=== PATIENT | male | born 1970 | race Caucasian/White ===

== ENCOUNTER 2016-07-17 13:25 | Emergency (ER) | payer BC ==
[2016-07-17] MEDS ORDERED: Sodium Chloride 0.9% 2.5 ML Syringe FLUSH PRN (13:39)
[2016-07-17] MEDS ORDERED: Sodium Chloride 0.9% 10 ML Syringe FLUSH PRN (13:39)
--- NOTE | 2016-07-17 13:43 | EDM.PDOC ---
ED HISTORY OF PRESENT ILLNESS - General Chief Complaint: Cardiovascular Problem Stated Complaint: CHEST PAIN Time Seen by Provider: 07/17/16 13:30 - History of Present Illness INITIAL COMMENTS - FREE TEXT/NARRATIVE: HISTORY AND PHYSICAL: History of present illness: The patient is a 45-year-old male with a history of hypertension hypercholesterolemia who had angioplasty and stent stents done on May 29 of this year at [facility] with Dr. Kathleen and presents with complaints of feeling irregular heartbeat that started at 3 AM this morning. The patient stated a normal day yesterday with no systemic complaints of cough fever chills chest pain shortness of breath abdominal pain vomiting or diarrhea and has been eating and drinking normally. He states compliance with his medications including Plavix. He states he had an angioplasty and 2 stents placed on May 29 of this year after being transferred from the ER. He saw Dr. Kathleen approximately 2 weeks ago in the office and he was cleared to not come back for the next 6 months. There were no medication changes on that visit. The patient states that at 3 AM this morning he started feeling irregular heart beats and that they have been constantly occurring since that time until the present. He went to cardiac rehabilitation this morning and states that the nurse saw one irregular beat while he was there. He says he came into the ER because they have been happening at shorter intervals and occurring more frequently. He denies any chest pain or shortness of breath with this no nausea vomiting and no abdominal pain. The patient states he has a history of heavy caffeine use but has cut back to only one Monster drink a day Upon repeated questioning with the patient he says he asked we does not feel any discomfort with these irregular beats but because they're happening more frequently he is feeling somewhat anxious about them. Review of systems: As per history of present illness and below otherwise all systems reviewed and negative. Past medical history: As per history of present illness and as reviewed below otherwise noncontributory. Surgical history: As per history of present illness and as reviewed below otherwise noncontributory. Social history: No reported history of drug or alcohol abuse. Family history: As per history of present illness and as reviewed below otherwise noncontributory. Physical exam: General: Well-developed well-nourished male who is nontoxic and still mildly overweight who is in no distress. On the monitor I personally was able to witness to random PVCs. HEENT: Atraumatic, normocephalic, pupils reactive, negative for conjunctival pallor or scleral icterus, mucous membranes moist, throat clear, neck supple, nontender, trachea midline. Lungs: Clear to auscultation, breath sounds equal bilaterally, chest nontender. Heart: S1S2, regular, negative for clicks, rubs, or JVD. Abdomen: Soft, nondistended, nontender. Negative for masses or hepatosplenomegaly. Negative for costovertebral tenderness. Pelvis: Stable nontender. Genitourinary: Deferred. Rectal: Deferred. Extremities: Atraumatic, negative for cords or calf pain. Neurovascular unremarkable. No pedal edema Neuro: Awake, alert, oriented. Cranial nerves II through XII unremarkable. Cerebellum unremarkable. Motor and sensory unremarkable throughout. Exam nonfocal. Diagnostics: EKG chest x-ray CBC CMP INR troponin Therapeutics: IV O2 monitor 1435: While patient was here in the ER he did have an occasional PVC and has had heart rates in the [place] 90s with good blood pressures. I discussed the case with Dr. Kathleen, his fluorescent solution mixer at [facility] in [place], and he would like to do a 24-hour Holter monitor which will help arrange to be done. He also recommended that we increase his Toprol XL to 50 mg twice a day. I discussed this plan with the patient and at bedside and they are comfortable with this. I recommended that he return to the ER if anything changes Impression: Irregular heartbeats with history of recent angioplasty and stents stable Definitive disposition and diagnosis as appropriate pending reevaluation and review of above. - Related Data Allergies/ADRs: Allergies Allergy/AdvReac Type Severity Reaction Status Date / Time No Known Allergies Allergy Verified 07/17/16 13:30 Home Meds: Home Meds Clopidogrel [Plavix] 75 mg PO BEDTIME 05/28/16 [History] Isosorbide Dinitrate 30 mg PO BID 05/28/16 [History] Metoprolol Succinate [Toprol XL 50mg] 50 mg PO DAILY 05/28/16 [History] atorvaSTATin [Lipitor] 20 mg PO ONETIME 05/28/16 [History] Cyclobenzaprine [Flexeril] 1 tab PO ASDIRECTED PRN 07/17/16 [History] Nitroglycerin [Nitrostat] 1 tab SL ASDIRECTED 07/17/16 [History] Tapentadol HCl [Nucynta] 2 tab PO QID 07/17/16 [History] Varenicline Tartrate [Chantix] 1 tab PO BID 07/17/16 [History] Zolpidem [Ambien] 1 tab PO BEDTIME 07/17/16 [History] Past Medical History - Past Health History Medical/Surgical History: Denies Medical/Surgical History HEENT History: Reports: None Cardiovascular History: Reports: CAD Other Cardiovascular History: Heart attack last month; no stents Respiratory History: Reports: None Musculoskeletal History: Reports: Other (see below) Other Musculoskeletal History: Back injury Psychiatric History: Reports: None - Infectious Disease History Infectious Disease History: Reports: Chicken pox - Past Surgical History HEENT Surgical History: Reports: None Cardiovascular Surgical History: Reports: Coronary artery stent, Percutaneous transluminal angioplasty GI Surgical History: Reports: Appendectomy, Hernia, abdominal Musculoskeletal Surgical History: Reports: None Social & Family History - Family History Family Medical History: Noncontributory Cardiac: Reports: Hypertension, Other (see below) Other Cardiac Family History: father have cardiac problem Endocrine/Metabolic: Reports: Diabetes, type II - Tobacco Use Smoking Status *Q: Current Every Day Smoker Years of Tobacco use: 20 Packs/Tins Daily: 1 Second Hand Smoke Exposure: Yes - Caffeine Use Caffeine Use: Reports: Soda Caffeine Use Comment: 3cups/day - Recreational Drug Use Recreational Drug Use: No ED ROS GENERAL - Review of Systems Review Of Systems: ROS reveals no pertinent complaints other than HPI. ED EXAM, GENERAL - Physical Exam Exam: See Below (See dictation) Course - Vital Signs Last Recorded V/S: Last Vital Signs Temp 36.1 C 07/17/16 13:30 Pulse 90 07/17/16 13:30 Resp 20 07/17/16 13:30 BP 134/82 07/17/16 13:30 Pulse Ox 96 07/17/16 13:39 - Orders/Labs/Meds Orders: Active Orders 24 hr Category Date Time Status Cardiac Monitoring [RC] . DIRECTED Care 07/17/16 13:39 Active EKG Documentation Completion [RC] STAT Care 07/17/16 13:39 Active Oxygen Therapy, ED [RC] ASDIRECTED Care 07/17/16 13:39 Active Pulse Oximetry [RC] ASDIRECTED Care 07/17/16 13:39 Active Sodium Chloride 0.9% [Saline Flush] Med 07/17/16 13:39 Active 10 ml FLUSH ASDIRECTED PRN Sodium Chloride 0.9% [Saline Flush] Med 07/17/16 13:39 Active 2.5 ml FLUSH ASDIRECTED PRN Saline Lock Insert [OM.PC] Stat Oth 07/17/16 13:39 Ordered Medication Orders Sodium Chloride (Saline Flush) 10 ml FLUSH ASDIRECTED PRN PRN Reason: Keep Vein Open Sodium Chloride (Saline Flush) 2.5 ml FLUSH ASDIRECTED PRN PRN Reason: Keep Vein Open Labs: Laboratory Tests 07/17/16 07/17/16 07/17/16 Range/Units 13:30 13:30 13:30 WBC 9.48 (4.0-11.0) K/uL RBC 4.69 (4.50-5.90) M/uL Hgb 14.4 (13.0-17.0) g/dL Hct 43.1 (38.0-50.0) % MCV 91.9 (80.0-98.0) fL MCH 30.7 (27.0-32.0) pg MCHC 33.4 (31.0-37.0) g/dL RDW Std Deviation 43.4 (28.0-62.0) fl RDW Coeff of Anita 13 (11.0-15.0) % Plt Count 260 (150-400) K/uL MPV 9.60 (7.40-12.00) fL Neut % (Auto) 61.7 (48.0-80.0) % Lymph % (Auto) 27.5 (16.0-40.0) % [place] % (Auto) 8.2 (0.0-15.0) % Eos % (Auto) 2.1 (0.0-7.0) % Baso % (Auto) 0.5 (0.0-1.5) % Neut # 5.8 H (1.4-5.7) K/uL Lymph # 2.6 H (0.6-2.4) K/uL [place] # 0.8 (0.0-0.8) K/uL Eos # 0.2 (0.0-0.7) K/uL Baso # 0.1 (0.0-0.1) K/uL Nucleated RBC % 0.0 /100WBC Nucleated RBCs # 0 K/uL INR 0.98 (0.86-1.11) Sodium 137 (136-146) mmol/L Potassium 3.9 (3.5-5.1) mmol/L Chloride 102 (98-110) mmol/L Carbon Dioxide 25 (21-31) mmol/L BUN 9 (6.0-23.0) mg/dL Creatinine 1.1 (0.6-1.5) mg/dL Est Cr Clr Drug Dosing 95.04 mL/min Estimated GFR (MDRD) > 60.0 ml/min Glucose 126 H (60-110) mg/dL Calcium 9.9 (8.8-10.8) mg/dL Magnesium (1.5-2.3) mEq/L Total Bilirubin 0.3 (0.1-1.5) mg/dL AST 22 (5-40) IU/L ALT 35 (8-54) IU/L Alkaline Phosphatase 75 (40-150) Troponin I (0.0-0.29) NG/ML Total Protein 8.2 H (6.0-8.0) g/dL Albumin 4.6 (3.5-5.0) g/dL Globulin 3.6 H (2.0-3.5) g/dL Albumin/Globulin Ratio 1.3 (1.3-2.8) 07/17/16 07/17/16 Range/Units 13:30 13:30 WBC (4.0-11.0) K/uL RBC (4.50-5.90) M/uL Hgb (13.0-17.0) g/dL Hct (38.0-50.0) % MCV (80.0-98.0) fL MCH (27.0-32.0) pg MCHC (31.0-37.0) g/dL RDW Std Deviation (28.0-62.0) fl RDW Coeff of Anita (11.0-15.0) % Plt Count (150-400) K/uL MPV (7.40-12.00) fL Neut % (Auto) (48.0-80.0) % Lymph % (Auto) (16.0-40.0) % [place] % (Auto) (0.0-15.0) % Eos % (Auto) (0.0-7.0) % Baso % (Auto) (0.0-1.5) % Neut # (1.4-5.7) K/uL Lymph # (0.6-2.4) K/uL [place] # (0.0-0.8) K/uL Eos # (0.0-0.7) K/uL Baso # (0.0-0.1) K/uL Nucleated RBC % /100WBC Nucleated RBCs # K/uL INR (0.86-1.11) Sodium (136-146) mmol/L Potassium (3.5-5.1) mmol/L Chloride (98-110) mmol/L Carbon Dioxide (21-31) mmol/L BUN (6.0-23.0) mg/dL Creatinine (0.6-1.5) mg/dL Est Cr Clr Drug Dosing mL/min Estimated GFR (MDRD) ml/min Glucose (60-110) mg/dL Calcium (8.8-10.8) mg/dL Magnesium 1.8 (1.5-2.3) mEq/L Total Bilirubin (0.1-1.5) mg/dL AST (5-40) IU/L ALT (8-54) IU/L Alkaline Phosphatase (40-150) Troponin I < 0.10 (0.0-0.29) NG/ML Total Protein (6.0-8.0) g/dL Albumin (3.5-5.0) g/dL Globulin (2.0-3.5) g/dL Albumin/Globulin Ratio (1.3-2.8) Meds: Medications Generic Name Dose Route Start Last Admin Trade Name Freq PRN Reason Stop Dose Admin Sodium Chloride 10 ml 07/17/16 13:39 Saline Flush FLUSH ASDIRECTED PRN Keep Vein Open Sodium Chloride 2.5 ml 07/17/16 13:39 Saline Flush FLUSH ASDIRECTED PRN Keep Vein Open Departure - Departure Time of Disposition: 14:42 Disposition: Home, Self-Care 01 Condition: good Clinical Impression: Irregular heart beats Forms: ED Department Discharge Additional Instructions: The following information is given to patients seen in the emergency department who are being discharged to home. This information is to outline your options for follow-up care. We provide all patients seen in our emergency department with a follow-up referral. The need for follow-up, as well as the timing and circumstances, are variable depending upon the specifics of your emergency department visit. If you don't have a primary care physician on staff, we will provide you with a referral. We always advise you to contact your personal physician following an emergency department visit to inform them of the circumstance of the visit and for follow-up with them and/or the need for any referrals to a consulting specialist. The emergency department will also refer you to a specialist when appropriate. This referral assures that you have the opportunity for followup care with a specialist. All of these measure are taken in an effort to provide you with optimal care, which includes your followup. Under all circumstances we always encourage you to contact your private physician who remains a resource for coordinating your care. When calling for followup care, please make the office aware that this follow-up is from your recent emergency room visit. If for any reason you are refused follow-up, please contact the [facility] emergency department at and ask to speak to the emergency department charge nurse. [facility]- [place] [address] Please go and have your Holter monitor done as directed by my nurses. Please call and schedule followup with Dr. Kathleen at [facility] in [place] and also with primary care here locally. Return to ER as needed and as discussed. Increase your Toprol XL, metoprolol, from 50 mg once a day 50 mg twice a day. - My Orders Last 24 Hours: My Active Orders 07/17/16 13:39 Cardiac Monitoring [RC] . DIRECTED EKG Documentation Completion [RC] STAT Oxygen Therapy, ED [RC] ASDIRECTED Pulse Oximetry [RC] ASDIRECTED Sodium Chloride 0.9% [Saline Flush] 10 ml FLUSH ASDIRECTED PRN Sodium Chloride 0.9% [Saline Flush] 2.5 ml FLUSH ASDIRECTED PRN Saline Lock Insert [OM.PC] Stat - Assessment/Plan Last 24 Hours: My Active Orders 07/17/16 13:39 Cardiac Monitoring [RC] . DIRECTED EKG Documentation Completion [RC] STAT Oxygen Therapy, ED [RC] ASDIRECTED Pulse Oximetry [RC] ASDIRECTED Sodium Chloride 0.9% [Saline Flush] 10 ml FLUSH ASDIRECTED PRN Sodium Chloride 0.9% [Saline Flush] 2.5 ml FLUSH ASDIRECTED PRN Saline Lock Insert [OM.PC] Stat
[2016-07-17 14:03] LABS: CHLORIDE,CL 102 mmol/L (98-110); SODIUM,NA 137 mmol/L (136-146)
--- NOTE | 2016-07-17 14:14 | CR ---
EXAMINATION: Portable chest radiograph. HISTORY: Shortness of breath. FINDINGS: The trachea is midline. The cardiomediastinal silhouette is within normal limits. No pulmonary infil trates, effusions or pneumothorax. Osseous structures appear unremarkable. IMPRESSION: No acute cardiopulmonary process.
[2016-07-17 15:11] VITALS: BP 130/83
== END 2016-07-17 15:00 | disposition home or self-care (01) ==
LOC: MW.ED 13:25
DX: I49.9 Cardiac arrhythmia, unspecified (principal); I25.10 Atherosclerotic heart disease of native coronary artery without angina pectoris; E11.9 Type 2 diabetes mellitus without complications; F17.210 Nicotine dependence, cigarettes, uncomplicated; Z90.49 Acquired absence of other specified parts of digestive tract; Z79.899 Other long term (current) drug therapy; Z95.5 Presence of coronary angioplasty implant and graft
CPT/HCPCS: 71010; 71010-26; 80053; 83735; 84484; 85025; 85610; 99284; 99285-25

== ENCOUNTER → 2016-07-19 | Outpatient (CLI) | payer BC | LOC: MW.RT 10:23 | PROVIDERS: ATTEND Emergency Medicine | DX: I49.3 Ventricular premature depolarization (principal) | CPT/HCPCS: 93225 ==

== ENCOUNTER 2016-10-07 23:35 | Observation (INO) | payer BC ==
[2016-10-07] MEDS ORDERED: Nitroglycerin 2% Oint 1 GM UD Packet TOP ONE (23:51)
[2016-10-07] MEDS ORDERED: Acetaminophen/HYDROcodone 325-5 MG Tab PO ONE (23:51)
[2016-10-07] MEDS ORDERED: Aspirin 81 MG Tab.Chew PO ONE (23:57)
[2016-10-08 00:34] LABS: CHLORIDE,CL 104 mmol/L (98-110); SODIUM,NA 140 mmol/L (136-146)
--- NOTE | 2016-10-08 00:44 | EDM.PDOC ---
ED HPI GENERAL MEDICAL PROBLEM - General Chief Complaint: Chest Pain Stated Complaint: CHEST PAIN Time Seen by Provider: 10/07/16 23:36 Source of Information: Reports: Patient History Limitations: Reports: No Limitations - History of Present Illness INITIAL COMMENTS - FREE TEXT/NARRATIVE: HISTORY AND PHYSICAL: History of present illness: [45-year-old male history of prior IN with multiple stents placed now presents emergent [place] complaining of chest pain similar to his previous cardiac pain. Patient had onset of chest pain tonight pressure type no radiation mild shortness of air no pleuritic pain no productive cough or fever. Pain is not worse with movement. He did take 3 nitroglycerin at home with some relief. She did not take aspirin today. He is on Plavix with which he is compliant] Review of systems: As per history of present illness and below otherwise all systems reviewed and negative. Past medical history: As per history of present illness and as reviewed below otherwise noncontributory. Surgical history: As per history of present illness and as reviewed below otherwise noncontributory. Social history: No reported history of drug or alcohol abuse. Family history: As per history of present illness and as reviewed below otherwise noncontributory. Physical exam: HEENT: Atraumatic, normocephalic, pupils reactive, negative for conjunctival pallor or scleral icterus, mucous membranes moist, throat clear, neck supple, nontender, trachea midline. Lungs: Clear to auscultation, breath sounds equal bilaterally, chest nontender. Heart: S1S2, regular, negative for clicks, rubs, or JVD. Abdomen: Soft, nondistended, nontender. Negative for masses or hepatosplenomegaly. Negative for costovertebral tenderness. Pelvis: Stable nontender. Genitourinary: Deferred. Rectal: Deferred. Extremities: Atraumatic, negative for cords or calf pain. Neurovascular unremarkable. Neuro: Awake, alert, oriented. Cranial nerves grossly unremarkable. Cerebellum unremarkable. Motor and sensory unremarkable throughout. Exam nonfocal. Diagnostics: [EKG normal sinus rhythm at 80 normal axis no STEMI Chest x-ray ordered Megaly chronic changes no acute disease no change prior study] Therapeutics: [Aspirin Nitropaste given] Impression: [] Plan: [Signs and symptoms consistent with chest pain a possible cardiac etiology in a patient with a known coronary artery disease history. EKG and chest x-ray unremarkable. CT of the chest pending to rule out less likely possibility of aortic involvement. Aspirin Nitropaste given. Labs pending including troponin. We will do observation telemetry admission and discussed with Dr. Mohinder Walsh hospitalist general production worker.] Definitive disposition and diagnosis as appropriate pending reevaluation and review of above. Anterior Chest Pain Score (Numeric/FACES): 7 - Related Data Allergies Allergy/AdvReac Type Severity Reaction Status Date / Time No Known Allergies Allergy Verified 10/07/16 23:39 Home Meds: Home Meds Clopidogrel [Plavix] 75 mg PO BEDTIME 05/28/16 [History] Isosorbide Dinitrate 30 mg PO BID 05/28/16 [History] Metoprolol Succinate [Toprol XL 50mg] 50 mg PO BID 05/28/16 [History] atorvaSTATin [Lipitor] 20 mg PO ONETIME 05/28/16 [History] Cyclobenzaprine [Flexeril] 1 tab PO ASDIRECTED PRN 07/17/16 [History] Nitroglycerin [Nitrostat] 1 tab SL ASDIRECTED 07/17/16 [History] Tapentadol HCl [Nucynta] 1 tab PO TID 07/17/16 [History] Aspirin 81 mg PO BRK 10/07/16 [History] Past Medical History - Past Health History Medical/Surgical History: Denies Medical/Surgical History HEENT History: Reports: None Cardiovascular History: Reports: IN, Stents Other Cardiovascular History: Heart attack last month; no stents Respiratory History: Reports: None Gastrointestinal History: Reports: None Genitourinary History: Reports: None Musculoskeletal History: Reports: None Other Musculoskeletal History: Back injury Neurological History: Reports: None Psychiatric History: Reports: None Endocrine/Metabolic History: Reports: None Hematologic History: Reports: None Immunologic History: Reports: None Oncologic (Cancer) History: Reports: None Dermatologic History: Reports: None - Infectious Disease History Infectious Disease History: Reports: None - Past Surgical History Head Surgeries/Procedures: Reports: None HEENT Surgical History: Reports: None Cardiovascular Surgical History: Reports: Coronary Artery Stent, Percutaneous Transluminal Angioplasty GI Surgical History: Reports: Appendectomy, Hernia, Abdominal Male Surgical History: Reports: None Neurological Surgical History: Reports: None Musculoskeletal Surgical History: Reports: None Social & Family History - Family History Family Medical History: Noncontributory Cardiac: Reports: Hypertension, Other (See Below) Other Cardiac Family History: father have cardiac problem Endocrine/Metabolic: Reports: Diabetes, type II - Tobacco Use Smoking Status *Q: Current Every Day Smoker Years of Tobacco use: 1 Packs/Tins Daily: 20 Second Hand Smoke Exposure: Yes - Caffeine Use Caffeine Use: Reports: Energy Drinks Caffeine Use Comment: 1 monster everyday - Recreational Drug Use Recreational Drug Use: No ED ROS GENERAL - Review of Systems Review Of Systems: See Below (History of present illness) ED EXAM, GENERAL - Physical Exam Exam: See Below (History of present illness) Course - Vital Signs Last Recorded V/S: Last Vital Signs Temp 35.6 C 10/07/16 23:40 Pulse 81 10/08/16 01:48 Resp 18 10/08/16 01:48 BP 112/71 10/08/16 01:48 Pulse Ox 95 10/08/16 01:48 - Orders/Labs/Meds Orders: Active Orders 24 hr Category Date Time Status Admission Status [Patient Status] [ADT] Stat ADT 10/08/16 02:18 Active EKG 12 Lead [EKG Documentation Completion] [RC] STAT Care 10/07/16 23:50 Active Ang Abdomen [CT] Stat Exams 10/08/16 Taken CTA Chest W WO Contrast [Ang Chest] [CT] Stat Exams 10/08/16 00:16 Taken Chest 1V Frontal [CR] Stat Exams 10/07/16 23:51 Taken Labs: Laboratory Tests 10/07/16 10/07/16 10/07/16 Range/Units 23:43 23:43 23:43 WBC 13.99 H (4.0-11.0) K/uL RBC 4.78 (4.50-5.90) M/uL Hgb 15.2 (13.0-17.0) g/dL Hct 43.7 (38.0-50.0) % MCV 91.4 (80.0-98.0) fL MCH 31.8 (27.0-32.0) pg MCHC 34.8 (31.0-37.0) g/dL RDW Std Deviation 42.8 (28.0-62.0) fl RDW Coeff of Anita 13 (11.0-15.0) % Plt Count 250 (150-400) K/uL MPV 9.90 (7.40-12.00) fL Neut % (Auto) 65.1 (48.0-80.0) % Lymph % (Auto) 24.2 (16.0-40.0) % [place] % (Auto) 8.6 (0.0-15.0) % Eos % (Auto) 1.7 (0.0-7.0) % Baso % (Auto) 0.4 (0.0-1.5) % Neut # (Auto) 9.1 H (1.4-5.7) K/uL Lymph # (Auto) 3.4 H (0.6-2.4) K/uL [place] # (Auto) 1.2 H (0.0-0.8) K/uL Eos # (Auto) 0.2 (0.0-0.7) K/uL Baso # (Auto) 0.1 (0.0-0.1) K/uL Nucleated RBC % 0.0 /100WBC Nucleated RBCs # 0 K/uL Sodium 140 (136-146) mmol/L Potassium 3.8 (3.5-5.1) mmol/L Chloride 104 (98-110) mmol/L Carbon Dioxide 26 (21-31) mmol/L BUN 12 (6.0-23.0) mg/dL Creatinine 1.2 (0.6-1.5) mg/dL Est Cr Clr Drug Dosing 87.12 mL/min Estimated GFR (MDRD) > 60.0 ml/min Glucose 96 (60-110) mg/dL Calcium 9.4 (8.8-10.8) mg/dL Total Bilirubin 0.4 (0.1-1.5) mg/dL AST 27 (5-40) IU/L ALT 37 (8-54) IU/L Alkaline Phosphatase 84 (40-150) CK-MB (CK-2) 1.0 (0-6.6) ng/ml Troponin I < 0.10 (0.0-0.29) NG/ML Total Protein 7.8 (6.0-8.0) g/dL Albumin 4.7 (3.5-5.0) g/dL Globulin 3.1 (2.0-3.5) g/dL Albumin/Globulin Ratio 1.5 (1.3-2.8) Meds: Medications Discontinued Medications Generic Name Dose Route Start Last Admin Trade Name Harini PRN Reason Stop Dose Admin Hydrocodone Bitart/Acetaminophen 1 tab 10/07/16 23:51 10/08/16 00:05 [place] 325-5 Mg PO 10/07/16 23:52 1 tab ONETIME ONE Administration Aspirin 324 mg 10/07/16 23:57 10/08/16 00:04 Aspirin PO 10/07/16 23:58 324 mg ONETIME ONE Administration Iopamidol 100 ml 10/08/16 01:17 10/08/16 01:18 Isovue Multipack-370 (76%) IVPUSH 10/08/16 01:18 100 ml ONETIME STA Administration Nitroglycerin 1 gm 10/07/16 23:51 10/08/16 00:05 Nitro-Bid 2% TOP 10/07/16 23:52 1 gm ONETIME ONE Administration Departure - Departure Time of Disposition: 00:44 Disposition: Refer to Observation Condition: good Clinical Impression: Chest pain - Discharge Information Referrals: Beto Gr MD [Primary Care Provider] - Forms: ED Department Discharge - My Orders Last 24 Hours: My Active Orders 10/07/16 23:50 EKG 12 Lead [EKG Documentation Completion] [RC] STAT 10/07/16 23:51 Chest 1V Frontal [CR] Stat 10/08/16 Ang Abdomen [CT] Stat 10/08/16 00:16 CTA Chest W WO Contrast [Ang Chest] [CT] Stat 10/08/16 02:18 Admission Status [Patient Status] [ADT] Stat - Assessment/Plan Last 24 Hours: My Active Orders 10/07/16 23:50 EKG 12 Lead [EKG Documentation Completion] [RC] STAT 10/07/16 23:51 Chest 1V Frontal [CR] Stat 10/08/16 Ang Abdomen [CT] Stat 10/08/16 00:16 CTA Chest W WO Contrast [Ang Chest] [CT] Stat 10/08/16 02:18 Admission Status [Patient Status] [ADT] Stat
[2016-10-08] MEDS ORDERED: Iopamidol 755 MG/ML 500 ML Multipack Bottle IVPUSH STA (01:17)
[2016-10-08] MEDS ORDERED: Morphine 2 MG/ML Syringe IVPUSH PRN (03:19)
[2016-10-08] MEDS ORDERED: Cyclobenzaprine 10 MG Tab PO PRN (03:37)
[2016-10-08] MEDS ORDERED: Nitroglycerin 0.4 MG Tab.SL SL SCH (03:45)
[2016-10-08] MEDS ORDERED: TAPENTADOL HCL PO SCH (06:00)
[2016-10-08] MEDS ORDERED: Acetaminophen 325 MG Tab PO PRN (08:09)
[2016-10-08 08:28] LABS: CHLORIDE,CL 105 mmol/L (98-110); SODIUM,NA 138 mmol/L (136-146)
[2016-10-08] MEDS ORDERED: Isosorbide Dinitrate 10 MG Tab PO SCH (09:00)
[2016-10-08] MEDS ORDERED: Isosorbide Dinitrate 10 MG Tab PO ONE (09:00)
[2016-10-08] MEDS ORDERED: Metoprolol Succinate 50 MG Tab.ER PO SCH (09:00)
[2016-10-08] MEDS ORDERED: TAPENTADOL 50 MG PO SCH (09:00)
[2016-10-08] MEDS ORDERED: Aspirin 81 MG Tab.Chew PO SCH (09:00)
--- NOTE | 2016-10-08 11:47 | PCM.HP ---
H&P History of Present Illness - History of Present Illness Initial Comments - Free Text/Narative: 45 yo male with pmh of CAD with IA and two stents placed five months ago. He has been compliant with his medications in has not had to use nitro for chest pain in the past three months. He presents to the ED with complaints of chest pain. He used nitro SL x3 at home with some releif. He was evaluated in the ED with EKG and cardiac enzymes not showing signs of ischemia. CTA of chest was normal. He denies any shortness of breath, diaphoresis or cough. Anterior Chest Pain Score (Numeric/FACES): 3 - Related Data Allergies/Adverse Reactions: Allergies Allergy/AdvReac Type Severity Reaction Status Date / Time No Known Allergies Allergy Verified 10/07/16 23:39 Home Medications: Home Meds Clopidogrel [Plavix] 75 mg PO BEDTIME 05/28/16 [History] Isosorbide Dinitrate 30 mg PO BID 05/28/16 [History] Metoprolol Succinate [Toprol XL 50mg] 50 mg PO BID 05/28/16 [History] atorvaSTATin [Lipitor] 20 mg PO BEDTIME 05/28/16 [History] Cyclobenzaprine [Flexeril] 1 tab PO QID PRN 07/17/16 [History] Nitroglycerin [Nitrostat] 1 tab SL ASDIRECTED 07/17/16 [History] Tapentadol HCl [Nucynta] 1 tab PO TID 07/17/16 [History] Aspirin 81 mg PO BRK 10/07/16 [History] Past Medical History - Past Health History Medical/Surgical History: Denies Medical/Surgical History HEENT History: Reports: None Cardiovascular History: Reports: IA, Stents Other Cardiovascular History: Heart attak last month; no stents Respiratory History: Reports: None Gastrointestinal History: Reports: None Genitourinary History: Reports: None Musculoskeletal History: Reports: None Other Musculoskeletal History: Back injury Neurological History: Reports: None Psychiatric History: Reports: None Endocrine/Metabolic History: Reports: None Hematologic History: Reports: None Immunologic History: Reports: None Oncologic (Cancer) History: Reports: None Dermatologic History: Reports: None - Infectious Disease History Infectious Disease History: Reports: None - Past Surgical History Head Surgeries/Procedures: Reports: None HEENT Surgical History: Reports: None Cardiovascular Surgical History: Reports: Coronary Artery Stent, Percutaneous Transluminal Angioplasty GI Surgical History: Reports: Appendectomy, Hernia, Abdominal Male Surgical History: Reports: None Neurological Surgical History: Reports: None Musculoskeletal Surgical History: Reports: None Social & Family History - Family History Family Medical History: Noncontributory Cardiac: Reports: Hypertension, Other (See Below) Other Cardiac Family History: father have cardiac problem Respiratory: Reports: None GI: Reports: None : Reports: None Musculoskeletal: Reports: None Neurological: Reports: None Psychiatric: Reports: None Endocrine/Metabolic: Reports: None, Diabetes, type II Hematologic: Reports: None Immunologic: Reports: None Dermatologic: Reports: None Oncologic: Reports: None - Tobacco Use Smoking Status *Q: Current Every Day Smoker Years of Tobacco use: 20 Packs/Tins Daily: 1 Used Tobacco, but Quit: No Month Tobacco Last Used: September Second Hand Smoke Exposure: Yes - Caffeine Use Caffeine Use: Reports: Coffee, Energy Drinks Caffeine Use Comment: 1 monster everyday - Alcohol Use Days Per Week of Alcohol Use: 1 Number of Drinks Per Day: 1 Total Drinks Per Week: 1 Date of Last Drink: 10/07/16 Time of Last Drink: 20:00 - Recreational Drug Use Recreational Drug Use: No H&P Review of Systems - Review of Systems: Review Of Systems: See Below General: Reports: No Symptoms HEENT: Reports: No Symptoms Pulmonary: Reports: No Symptoms Cardiovascular: Reports: No Symptoms Gastrointestinal: Reports: No Symptoms Genitourinary: Reports: No Symptoms Musculoskeletal: Reports: No Symptoms Skin: Reports: No Symptoms Psychiatric: Reports: No Symptoms Neurological: Reports: No Symptoms Hematologic/Lymphatic: Reports: No Symptoms Immunologic: Reports: No Symptoms Exam - Exam Exam: See Below - Vital Signs Vital Signs: Last Vital Signs Temp 36.1 C 10/08/16 08:00 Pulse 71 10/08/16 08:50 Resp 20 10/08/16 08:00 BP 130/69 10/08/16 08:50 Pulse Ox 92 L 10/08/16 08:00 Weight: 122.7 kg - Exam General: Alert, Oriented, 4 Neck: Supple, Trachea Midline. No: JVD Lungs: Clear to Auscultation, Normal Respiratory Effort Cardiovascular: Regular Rate, Regular Rhythm Abdomen: Normal Bowel Sounds, Soft Extremities: Normal Inspection Skin: Warm, Dry, Intact Neurological: No: Focal Deficit - Patient Data Lab Results last 24 hrs: Laboratory Results - last 24 hr 10/08/16 10/08/16 10/08/16 Range/Units 05:50 05:50 05:50 WBC 10.62 (4.0-11.0) K/uL RBC 4.35 L (4.50-5.90) M/uL Hgb 13.5 (13.0-17.0) g/dL Hct 39.9 (38.0-50.0) % MCV 91.7 (80.0-98.0) fL MCH 31.0 (27.0-32.0) pg MCHC 33.8 (31.0-37.0) g/dL RDW Std Deviation 43.0 (28.0-62.0) fl RDW Coeff of Anita 13 (11.0-15.0) % Plt Count 211 (150-400) K/uL MPV 10.20 (7.40-12.00) fL Neut % (Auto) 62.8 (48.0-80.0) % Lymph % (Auto) 26.9 (16.0-40.0) % [place] % (Auto) 7.6 (0.0-15.0) % Eos % (Auto) 2.4 (0.0-7.0) % Baso % (Auto) 0.3 (0.0-1.5) % Neut # (Auto) 6.7 H (1.4-5.7) K/uL Lymph # (Auto) 2.9 H (0.6-2.4) K/uL [place] # (Auto) 0.8 (0.0-0.8) K/uL Eos # (Auto) 0.3 (0.0-0.7) K/uL Baso # (Auto) 0.0 (0.0-0.1) K/uL Nucleated RBC % 0.0 /100WBC Nucleated RBCs # 0 K/uL Sodium 138 (136-146) mmol/L Potassium 4.1 (3.5-5.1) mmol/L Chloride 105 (98-110) mmol/L Carbon Dioxide 25 (21-31) mmol/L BUN 13 (6.0-23.0) mg/dL Creatinine 1.0 (0.6-1.5) mg/dL Est Cr Clr Drug Dosing 104.54 mL/min Estimated GFR (MDRD) > 60.0 ml/min Glucose 139 H (60-110) mg/dL Calcium 8.6 L (8.8-10.8) mg/dL Troponin I < 0.10 (0.0-0.29) NG/ML Result Diagrams: 10/08/16 05:50 10/08/16 05:50 *Q Meaningful Use (ADM) - VTE *Q VTE Criteria *Q: - Stroke *Q Stroke Criteria *Q: - AMI *Q AMI Criteria *Q: Problem List Initiated/Reviewed/Updated: Yes Orders Last 24hrs: Active Orders 24 hr Category Date Time Status Communication Order [RC] DAILY Care 10/08/16 03:37 Active Communication Order [RC] ROUTINE Care 10/08/16 08:09 Active Telemetry Monitoring [Cardiac Monitoring] [RC] . Care 10/08/16 02:25 Active DIRECTED Heart Healthy Diet [DIET] Diet Breakfast Active TROPONIN I [CHEM] Q6H Lab 10/08/16 11:45 Ordered Acetaminophen [Tylenol] Med 10/08/16 08:09 Active 650 mg PO Q6H PRN Aspirin Med 10/08/16 09:00 Active 81 mg PO DAILY Clopidogrel [Plavix] Med 10/08/16 21:00 Active 75 mg PO BEDTIME Cyclobenzaprine [Flexeril] Med 10/08/16 03:37 Active 10 mg PO QID PRN Isosorbide Dinitrate [Isordil] Med 10/08/16 09:00 Active 30 mg PO BID Metoprolol Succinate [Toprol XL] Med 10/08/16 09:00 Active 50 mg PO BID Morphine Med 10/08/16 03:19 Active 2 mg IVPUSH Q3H PRN Nitroglycerin [Nitrostat] Med 10/08/16 03:45 Active 0.4 mg SL ASDIRECTED Patient's Own Medication [Ptom] Med 10/08/16 09:00 Active 1 each PO TID@0900,1500,2200 atorvaSTATin [Lipitor] Med 10/08/16 21:00 Active 20 mg PO BEDTIME Medication Orders Acetaminophen (Tylenol) 650 mg PO Q6H PRN PRN Reason: Pain Last Admin: 10/08/16 08:50 Dose: 650 mg Aspirin (Aspirin) 81 mg PO DAILY JAQUI Last Admin: 10/08/16 08:49 Dose: 81 mg Atorvastatin Calcium (Lipitor) 20 mg PO BEDTIME [facility] Clopidogrel Bisulfate (Plavix) 75 mg PO BEDTIME [facility] Cyclobenzaprine HCl (Flexeril) 10 mg PO QID PRN PRN Reason: back pain Isosorbide Dinitrate (Isordil) 30 mg PO BID [facility] Last Admin: 10/08/16 08:50 Dose: 30 mg Metoprolol Succinate (Toprol Xl) 50 mg PO BID [facility] Last Admin: 10/08/16 08:50 Dose: 50 mg Morphine Sulfate (Morphine) 2 mg IVPUSH Q3H PRN PRN Reason: Pain Last Admin: 10/08/16 04:06 Dose: 2 mg Nitroglycerin (Nitrostat) 0.4 mg SL ASDIRECTED [facility] Tapentadol 50mg 1 each PO TID@0900,1500,2200 [facility] Last Admin: 10/08/16 08:50 Dose: 1 each Assessment/Plan Comment:: 45 yo male who presented with chest pain. He has ruled out for acute coronary syndrome with serial negative cardiac enzymes. He has had no events on telemetry overnight. He is being discharged home and will follow up with Dr. Gr next week.
[2016-10-08 11:50] VITALS: BP 117/57
[2016-10-08] MEDS ORDERED: atorvaSTATin 20 MG Tab PO SCH (21:00)
[2016-10-08] MEDS ORDERED: Clopidogrel 75 MG Tab PO SCH (21:00)
--- NOTE | 2016-10-09 11:01 | CR ---
EXAM DATE: 10/08/16 PATIENT'S AGE: 45 Patient: NELLY TANG Facility: [place], [place] Site . Site : 1970 Study: XRay Chest [id number]/11/2017 12:04:03 AM Ordering Physician: Kalyan Levine Final Report: INDICATION: CHEST PAIN TECHNIQUE: Chest 1 view COMPARISON: None FINDINGS: Cardiovascular and mediastinum: Stable cardiac silhouette. Slight indistinct central vascularity. Lungs and pleural space: No focal consolidation. No sign of pleural effusion. No pneumothorax. Bones and soft tissues: No significant findings. IMPRESSION: Slight indistinct central vascularity. Findings suggesting a component of pulmonary edema. Please correlate clinically and with laboratory findings. Dictated by Leonel Marley MD @ 10/08/2016 12:35:15 AM Dictated by: Leonel Marley MD @ 10/08/2016 00:35:35 (Electronic Signature) Report Signed by Proxy. [facility] AND MEDICAL CENTERPedro
--- NOTE | 2016-10-09 11:02 | CT ---
EXAM DATE: 10/08/16 PATIENT'S AGE: 45 Patient: NELLY TANG Facility: [place], [place] Site . Site : 1970 Study: CT Chest Angio ABDOMEN [id number]/11/2017 1:27:22 AM Ordering Physician: Kalyan Levine Final Report: INDICATION: Chest pain TECHNIQUE: CT chest, abdomen and pelvis acquired with and without IV contrast, dissection protocol. The lower pelvis is not imaged. COMPARISON: Chest radiograph 10/07/2016, 07/17/2016. FINDINGS: Chest: Cardiovascular structures: The unenhanced images demonstrate no evidence of aortic intramural hematoma. The entire aorta is normal in caliber and there is no sign of aortic dissection. Heart size is normal. Coronary artery calcification noted. Mediastinum and zhanna: No mass or adenopathy. Lungs: No pneumothorax. The lungs are clear. Pleura and pericardium: No effusions. Chest wall and axilla: No mass or adenopathy. Abdomen and Pelvis: Liver: Unremarkable. Spleen: Unremarkable. Pancreas: Unremarkable. Gallbladder and bile ducts: Unremarkable. Kidneys: Unremarkable. Adrenal glands: Unremarkable. GI tract: There is colonic diverticulosis without evidence of diverticulitis. Small bowel is normal. Vascular structures: No abdominal aortic aneurysm. There is minimal atherosclerotic calcification. There are 2 left renal arteries, the cephalad of which is dominant. Mesenteric vasculature is patent. Lymph nodes: Unremarkable. Miscellaneous: No ascites. No free air. Pelvic Organs: The visualized urinary bladder is normal. Bones: No acute abnormality. No suspicious bone lesion. IMPRESSION: 1. No acute abnormality in the chest, abdomen and pelvis. No signs of aortic dissection or other acute abnormality. 2. Colonic diverticulosis. Dictated by Minh Burgos MD @ 10/08/2016 2:17:36 AM Dictated by: Minh Burgos MD @ 10/08/2016 02:17:48 (Electronic Signature) Report Signed by Proxy. BIRGIT
--- NOTE | 2016-10-09 11:04 | CT ---
EXAM DATE: 10/08/16 PATIENT'S AGE: 45 Patient: NELLY TANG Facility: [place], [place] Site . Site : 1970 Study: CT Chest Angio ABDOMEN [id number]/11/2017 1:27:22 AM Ordering Physician: Kalyan Levine Final Report: INDICATION: Chest pain TECHNIQUE: CT chest, abdomen and pelvis acquired with and without IV contrast, dissection protocol. The lower pelvis is not imaged. COMPARISON: Chest radiograph 10/07/2016, 07/17/2016. FINDINGS: Chest: Cardiovascular structures: The unenhanced images demonstrate no evidence of aortic intramural hematoma. The entire aorta is normal in caliber and there is no sign of aortic dissection. Heart size is normal. Coronary artery calcification noted. Mediastinum and zhanna: No mass or adenopathy. Lungs: No pneumothorax. The lungs are clear. Pleura and pericardium: No effusions. Chest wall and axilla: No mass or adenopathy. Abdomen and Pelvis: Liver: Unremarkable. Spleen: Unremarkable. Pancreas: Unremarkable. Gallbladder and bile ducts: Unremarkable. Kidneys: Unremarkable. Adrenal glands: Unremarkable. GI tract: There is colonic diverticulosis without evidence of diverticulitis. Small bowel is normal. Vascular structures: No abdominal aortic aneurysm. There is minimal atherosclerotic calcification. There are 2 left renal arteries, the cephalad of which is dominant. Mesenteric vasculature is patent. Lymph nodes: Unremarkable. Miscellaneous: No ascites. No free air. Pelvic Organs: The visualized urinary bladder is normal. Bones: No acute abnormality. No suspicious bone lesion. IMPRESSION: 1. No acute abnormality in the chest, abdomen and pelvis. No signs of aortic dissection or other acute abnormality. 2. Colonic diverticulosis. Dictated by Minh Burgos MD @ 10/08/2016 2:17:36 AM Dictated by: Minh Burgos MD @ 10/08/2016 02:17:48 (Electronic Signature) Report Signed by Proxy. BIRGIT
== END 2016-10-08 13:00 | disposition home or self-care (01) ==
LOC: MW.ED 23:35 → UNDOADMOB 10-08 02:29 → MW.MS 10-08 02:29
PROVIDERS: ADMIT Internal Medicine; ATTEND Internal Medicine
DX: R07.9 Chest pain, unspecified (principal); I25.10 Atherosclerotic heart disease of native coronary artery without angina pectoris; I25.2 Old myocardial infarction; F17.210 Nicotine dependence, cigarettes, uncomplicated; K57.30 Diverticulosis of large intestine without perforation or abscess without bleeding; Z79.02 Long term (current) use of antithrombotics/antiplatelets; Z79.82 Long term (current) use of aspirin; Z79.899 Other long term (current) drug therapy; Z95.5 Presence of coronary angioplasty implant and graft; Z90.49 Acquired absence of other specified parts of digestive tract; Z98.890 Other specified postprocedural states; Z82.49 Family history of ischemic heart disease and other diseases of the circulatory system
CPT/HCPCS: 36415; 71010; 71275; 74175; 80048; 80053; 82553; 84484; 85025; 93005; 96374; 99285; A9270; G0378; J2270; Q9967

== ENCOUNTER 2017-07-03 20:28 | Observation (INO) | payer BC, OTHER ==
[2017-07-03] MEDS ORDERED: Sodium Chloride 0.9% 10 ML Syringe FLUSH PRN (20:39)
[2017-07-03] MEDS ORDERED: Sodium Chloride 0.9% 2.5 ML Syringe FLUSH PRN (20:39)
[2017-07-03] MEDS ORDERED: Aspirin 81 MG Tab.Chew PO ONE (20:39)
--- NOTE | 2017-07-03 20:45 | EDM.PDOC ---
ED HPI GENERAL MEDICAL PROBLEM - General Chief Complaint: Chest Pain Stated Complaint: CHEST PAIN Time Seen by Provider: 07/03/17 20:29 - History of Present Illness INITIAL COMMENTS - FREE TEXT/NARRATIVE: HISTORY AND PHYSICAL: History of present illness: The patient is a 46-year-old male who presents with left upper chest pain/ pressure that has been occurring the last 5 nights when he is laying in bed trying to go to sleep. He tells me that he is fine all day and when he is laying in bed he starts getting the discomfort in that it keeps him up all night and then it will go away by 8:00 in the morning. Each time this has occurred he has taken a sublingual nitroglycerin for total of 2 every night and that has helped the discomfort. He says that 5 days ago he was doing some heavy strenuous lifting and he thought he may of injured himself because this started after that. He has not taken anything specifically for musculoskeletal pain. He is a smoker and has been for many years and has no other social history. He has a significant paternal family history for cardiac disease and he underwent angioplasty and stents 2 of the LAD on May [id number] at [facility] in [place]. He last saw Dr. Kathleen the lithographic platemaker in December and he was told that he did not need to return for one year. He has Hypercholesterolemia and hypertension and takes medication for that and takes one baby aspirin per day along with Plavix. Currently in the ED the patient says that he is not having any discomfort as it is "not late enough start" . He says he only came here at his 's insistence. He has been eating and drinking normally and has no abdominal pain and he has no leg pain or swelling. He says he has had shortness of breath which has been ongoing for the last 6 or more months and is not new or different with the chest pain. He points to an area at the left upper chest wall and says the discomfort is aching and pressure-like but it does not radiate and he does not get diaphoretic. He tells me that this is the location of his heart pain but is not the same character. Patient follows with a provider at [facility] for his regular checkups and care and he has not seen that person in the last 5 days. He denies any upper respiratory symptoms. Review of systems: As per history of present illness and below otherwise all systems reviewed and negative. Past medical history: As per history of present illness and as reviewed below otherwise noncontributory. Surgical history: As per history of present illness and as reviewed below otherwise noncontributory. Social history: No reported history of drug or alcohol abuse. Family history: As per history of present illness and as reviewed below otherwise noncontributory. Physical exam: Gen.: Well-developed well-nourished man who is nontoxic and overweight. He speaks clearly and easily in the ED and vital signs were noted by me HEENT: Atraumatic, normocephalic, negative for conjunctival pallor or scleral icterus, mucous membranes moist, throat clear, neck supple, nontender, trachea midline. Lungs: Clear to auscultation, breath sounds equal bilaterally, chest nontender. No worker breathing stridor or wheezing Heart: S1S2, regular, negative for clicks, rubs, or JVD. Abdomen: Soft, nondistended, nontender. Negative for masses or hepatosplenomegaly. Negative for costovertebral tenderness. Pelvis: Stable nontender. Genitourinary: Deferred. Rectal: Deferred. Extremities: Atraumatic, negative for cords or calf pain. Neurovascular unremarkable. No pedal edema or leg asymmetry Neuro: Awake, alert, oriented. Cranial nerves II through XII unremarkable. Cerebellum unremarkable. Motor and sensory unremarkable throughout. Exam nonfocal. Skin: There is no diaphoresis no overt rashes or lesions and normal turgor Diagnostics: EKG chest x-ray CBC CMP troponin INR Therapeutics: 3 baby aspirin, patient took one this morning already Case was discussed with Dr. Walsh at 2135 and he accepts the patient for observation admission. The patient is currently playing video games on his cell phone and has had no chest pain here. He is aware of all testing results and my concerns regarding his history even though this chest pain pressure seems somewhat atypical. He is agreeable for observation and rule out. Impression: Chest pain with history of angioplasty and stents 1 year ago, rule out ACS Definitive disposition and diagnosis as appropriate pending reevaluation and review of above. - Related Data Allergies Allergy/AdvReac Type Severity Reaction Status Date / Time No Known Allergies Allergy Verified 07/03/17 20:39 Home Meds: Home Meds Clopidogrel [Plavix] 75 mg PO DAILY 05/28/16 [History] Isosorbide Dinitrate 30 mg PO BID 05/28/16 [History] Metoprolol Succinate [Toprol XL 50mg] 50 mg PO BID 05/28/16 [History] atorvaSTATin [Lipitor] 20 mg PO BEDTIME 05/28/16 [History] Cyclobenzaprine [Flexeril] 1 tab PO TID PRN 07/17/16 [History] Nitroglycerin [Nitrostat] 1 tab SL ASDIRECTED 07/17/16 [History] Tapentadol HCl [Nucynta] 1 tab PO TID 07/17/16 [History] Aspirin 81 mg PO DAILY 10/07/16 [History] Past Medical History - Past Health History Medical/Surgical History: Denies Medical/Surgical History HEENT History: Reports: None Cardiovascular History: Reports: [place], Stents Other Cardiovascular History: Heart attak last month; no stents Respiratory History: Reports: None Gastrointestinal History: Reports: None Genitourinary History: Reports: None Musculoskeletal History: Reports: None Other Musculoskeletal History: Back injury Neurological History: Reports: None Psychiatric History: Reports: None Endocrine/Metabolic History: Reports: None Hematologic History: Reports: None Immunologic History: Reports: None Oncologic (Cancer) History: Reports: None Dermatologic History: Reports: None - Infectious Disease History Infectious Disease History: Reports: None - Past Surgical History Head Surgeries/Procedures: Reports: None HEENT Surgical History: Reports: None Cardiovascular Surgical History: Reports: Coronary Artery Stent, Percutaneous Transluminal Angioplasty GI Surgical History: Reports: Appendectomy, Hernia, Abdominal Male Surgical History: Reports: None Neurological Surgical History: Reports: None Musculoskeletal Surgical History: Reports: None Social & Family History - Family History Family Medical History: Noncontributory Cardiac: Reports: Hypertension, Other (See Below) Other Cardiac Family History: father have cardiac problem Respiratory: Reports: None GI: Reports: None : Reports: None Musculoskeletal: Reports: None Neurological: Reports: None Psychiatric: Reports: None Endocrine/Metabolic: Reports: None, Diabetes, type II Hematologic: Reports: None Immunologic: Reports: None Dermatologic: Reports: None Oncologic: Reports: None - Tobacco Use Smoking Status *Q: Current Every Day Smoker Years of Tobacco use: 20 Packs/Tins Daily: 1 Used Tobacco, but Quit: No Month Tobacco Last Used: September Second Hand Smoke Exposure: Yes - Caffeine Use Caffeine Use: Reports: Coffee, Energy Drinks Caffeine Use Comment: 1 monster everyday - Alcohol Use Days Per Week of Alcohol Use: 1 Number of Drinks Per Day: 1 Total Drinks Per Week: 1 - Recreational Drug Use Recreational Drug Use: No ED ROS GENERAL - Review of Systems Review Of Systems: ROS reveals no pertinent complaints other than HPI. ED EXAM, GENERAL - Physical Exam Exam: See Below (See dictation) Course - Vital Signs Last Recorded V/S: Last Vital Signs Temp 36.4 C 07/03/17 20:28 Pulse 81 07/03/17 20:28 Resp 18 07/03/17 20:28 BP 164/91 H 07/03/17 20:28 Pulse Ox 99 07/03/17 20:28 - Orders/Labs/Meds Orders: Active Orders 24 hr Category Date Time Status Patient Status [ADT] Stat ADT 07/03/17 21:34 Ordered Cardiac Monitoring [RC] . DIRECTED Care 07/03/17 20:39 Active EKG Documentation Completion [RC] STAT Care 07/03/17 20:39 Active Oxygen Therapy, ED [RC] ASDIRECTED Care 07/03/17 20:39 Active Pulse Oximetry [RC] ASDIRECTED Care 07/03/17 20:39 Active Chest 1V Frontal [CR] Stat Exams 07/03/17 20:39 Taken Sodium Chloride 0.9% [Saline Flush] Med 07/03/17 20:39 Active 10 ml FLUSH ASDIRECTED PRN Sodium Chloride 0.9% [Saline Flush] Med 07/03/17 20:39 Active 2.5 ml FLUSH ASDIRECTED PRN Saline Lock Insert [OM.PC] Stat Oth 07/03/17 20:39 Ordered Medication Orders Sodium Chloride (Saline Flush) 10 ml FLUSH ASDIRECTED PRN PRN Reason: Keep Vein Open Sodium Chloride (Saline Flush) 2.5 ml FLUSH ASDIRECTED PRN PRN Reason: Keep Vein Open Labs: Laboratory Tests 07/03/17 07/03/17 07/03/17 Range/Units 20:50 20:50 20:50 WBC 11.85 H (4.0-11.0) K/uL RBC 4.87 (4.50-5.90) M/uL Hgb 15.5 (13.0-17.0) g/dL Hct 43.8 (38.0-50.0) % MCV 89.9 (80.0-98.0) fL MCH 31.8 (27.0-32.0) pg MCHC 35.4 (31.0-37.0) g/dL RDW Std Deviation 41.7 (28.0-62.0) fl RDW Coeff of Anita 13 (11.0-15.0) % Plt Count 232 (150-400) K/uL MPV 9.60 (7.40-12.00) fL Neut % (Auto) 62.2 (48.0-80.0) % Lymph % (Auto) 28.0 (16.0-40.0) % [place] % (Auto) 7.6 (0.0-15.0) % Eos % (Auto) 1.9 (0.0-7.0) % Baso % (Auto) 0.3 (0.0-1.5) % Neut # (Auto) 7.4 H (1.4-5.7) K/uL Lymph # (Auto) 3.3 H (0.6-2.4) K/uL [place] # (Auto) 0.9 H (0.0-0.8) K/uL Eos # (Auto) 0.2 (0.0-0.7) K/uL Baso # (Auto) 0.0 (0.0-0.1) K/uL Nucleated RBC % 0.0 /100WBC Nucleated RBCs # 0 K/uL INR 1.00 Sodium 139 (136-148) mmol/L Potassium 3.9 (3.5-5.1) mmol/L Chloride 102 (98-107) mmol/L Carbon Dioxide 28.1 (21.0-32.0) mmol/L BUN 11 (7.0-18.0) mg/dL Creatinine 1.0 (0.8-1.3) mg/dL Est Cr Clr Drug Dosing TNP Estimated GFR (MDRD) > 60.0 ml/min Glucose 108 H (74-106) mg/dL Calcium 8.9 (8.5-10.1) mg/dL Total Bilirubin 0.2 (0.2-1.0) mg/dL AST 25 (15-37) U/L ALT 43 (14-63) U/L Alkaline Phosphatase 73 (46-116) U/L Troponin I < 0.050 (0.000-0.056) ng/mL Total Protein 7.6 (6.4-8.2) g/dL Albumin 4.3 (3.4-5.0) g/dL Globulin 3.3 (2.0-3.5) g/dL Albumin/Globulin Ratio 1.3 (1.3-2.8) Meds: Medications Generic Name Dose Route Start Last Admin Trade Name Freq PRN Reason Stop Dose Admin Sodium Chloride 10 ml 07/03/17 20:39 Saline Flush FLUSH ASDIRECTED PRN Keep Vein Open Sodium Chloride 2.5 ml 07/03/17 20:39 Saline Flush FLUSH ASDIRECTED PRN Keep Vein Open Discontinued Medications Generic Name Dose Route Start Last Admin Trade Name Freq PRN Reason Stop Dose Admin Aspirin 243 mg 07/03/17 20:39 07/03/17 20:48 Aspirin PO 07/03/17 20:40 243 mg ONETIME ONE Administration Departure - Departure Time of Disposition: 21:39 Disposition: Refer to Observation Condition: Good Clinical Impression: Acute coronary syndrome - Discharge Information Forms: ED Department Discharge - My Orders Last 24 Hours: My Active Orders 07/03/17 20:39 Cardiac Monitoring [RC] . DIRECTED EKG Documentation Completion [RC] STAT Oxygen Therapy, ED [RC] ASDIRECTED Pulse Oximetry [RC] ASDIRECTED Chest 1V Frontal [CR] Stat Sodium Chloride 0.9% [Saline Flush] 10 ml FLUSH ASDIRECTED PRN Sodium Chloride 0.9% [Saline Flush] 2.5 ml FLUSH ASDIRECTED PRN Saline Lock Insert [OM.PC] Stat 07/03/17 21:34 Patient Status [ADT] Stat - Assessment/Plan Last 24 Hours: My Active Orders 07/03/17 20:39 Cardiac Monitoring [RC] . DIRECTED EKG Documentation Completion [RC] STAT Oxygen Therapy, ED [RC] ASDIRECTED Pulse Oximetry [RC] ASDIRECTED Chest 1V Frontal [CR] Stat Sodium Chloride 0.9% [Saline Flush] 10 ml FLUSH ASDIRECTED PRN Sodium Chloride 0.9% [Saline Flush] 2.5 ml FLUSH ASDIRECTED PRN Saline Lock Insert [OM.PC] Stat 07/03/17 21:34 Patient Status [ADT] Stat
[2017-07-03 21:20] LABS: CHLORIDE,CL 102 mmol/L (98-107); SODIUM,NA 139 mmol/L (136-148)
[2017-07-03] MEDS ORDERED: Acetaminophen 325 MG Tab PO PRN (23:37)
[2017-07-03] MEDS ORDERED: Pantoprazole 40 MG Vial IVPUSH ONE (23:38)
[2017-07-03] MEDS: Metoprolol Succinate 50 MG Tab.ER PO SCH (23:59)
[2017-07-04 07:55] VITALS: BP 133/82
--- NOTE | 2017-07-04 08:06 | PCM.HP ---
H&P History of Present Illness - General Date of Service: 07/04/17 Admit Problem/Dx: Admission Diagnosis/Problem Admission Diagnosis/Problem Acute coronary syndrome - History of Present Illness Initial Comments - Free Text/Narative: This 46 year old male with pmh of CAD with stenting to LAD and posterolateral branch 05/29/16, HTN, dyslipidemia, and current tobacco abuse presented to the ED last evening with complaints of chest pain for the last 5 evenings. He reports he has a dull pressure to L mid chest at rest, it usually occurs when he lays down at night and keeps him up all night and then reoccurs around 0800 am. He takes 1-2 nitros with the pain which helps relieve it. He has no radiation of the pain, no diaphoresis, but has had some nausea and dyspnea with it. Nothing makes it worse. He reports it is the same location when he was stented 1 year ago, but slightly differently feeling. He does report heavy lifting 5 days ago, lifting railroad ties into his pickup, but he has no pain with shoulder movement or palpation. He reports he has been complaint with anti- platelet medications as well as all other medications. He otherwise has felt normal since seeing Dr Kathleen in February, he reports he said he was doing well and to see him in 1 year. He denies any cough, fevers, palpitations, abdominal pain, black or bloody BMs. He does report taking NSAIDs for pain daily to every other day. No concerns with heartburn that he knows of. Family hx is significant for CAD and [place] on both sides, including father. Reports he started smoking again, 1 ppd, no alcohol use and no recreational drug use. In the ED, WBC 11,850, BMP WNL. troponin negative. CXR negative. EKG SR with LVH but no signs of acute ischemia. BP slightly elevated 144/77. He was admitted observation for chest pain rule out ACS. PCP, Dr Gr and [employer]2B [employer] Consultant Dr Kathleen. - Related Data Allergies/Adverse Reactions: Allergies Allergy/AdvReac Type Severity Reaction Status Date / Time No Known Allergies Allergy Verified 07/03/17 20:39 Home Medications: Home Meds Clopidogrel [Plavix] 75 mg PO DAILY 05/28/16 [History] Metoprolol Succinate [Toprol XL 50mg] 50 mg PO BID 05/28/16 [History] atorvaSTATin [Lipitor] 20 mg PO BEDTIME 05/28/16 [History] Cyclobenzaprine [Flexeril] 1 tab PO TID PRN 07/17/16 [History] Nitroglycerin [Nitrostat] 1 tab SL ASDIRECTED 07/17/16 [History] Tapentadol HCl [Nucynta] 1 tab PO TID 07/17/16 [History] Aspirin 81 mg PO DAILY 10/07/16 [History] Isosorbide Mononitrate [Imdur] 30 mg PO BID 07/04/17 [History] Pantoprazole Sodium [Protonix] 40 mg PO DAILY #30 tablet. 07/04/17 [Rx] Past Medical History - Past Health History Medical/Surgical History: Denies Medical/Surgical History Other HEENT History: wears glasses Cardiovascular History: Reports: CAD, High Cholesterol, Hypertension, [place], Stents (LAD and posterolateral branch in 05/29/16, drug eluting). Denies: Afib, Blood Clots/VTE/DVT Respiratory History: Reports: None. Denies: Asthma, COPD, PE Gastrointestinal History: Reports: None. Denies: GERD, GI Bleed Genitourinary History: Reports: None Musculoskeletal History: Reports: Back Pain, Chronic Other Musculoskeletal History: Back injury Neurological History: Reports: None. Denies: CVA, TIA Psychiatric History: Reports: None Endocrine/Metabolic History: Reports: Obesity/BMI 30+. Denies: Diabetes, Type II Hematologic History: Reports: None Immunologic History: Reports: None Oncologic (Cancer) History: Reports: None Dermatologic History: Reports: None - Infectious Disease History Infectious Disease History: Reports: Chicken Pox - Past Surgical History Head Surgeries/Procedures: Reports: None HEENT Surgical History: Reports: None Cardiovascular Surgical History: Reports: Coronary Artery Stent, Percutaneous Transluminal Angioplasty GI Surgical History: Reports: Appendectomy, Hernia, Abdominal Male Surgical History: Reports: None Neurological Surgical History: Reports: None Musculoskeletal Surgical History: Reports: None Social & Family History - Family History Family Medical History: Noncontributory Cardiac: Reports: Hypertension, Other (See Below) Other Cardiac Family History: father have cardiac problem Respiratory: Reports: None GI: Reports: None : Reports: None Musculoskeletal: Reports: None Neurological: Reports: None Psychiatric: Reports: None Endocrine/Metabolic: Reports: None, Diabetes, type II Hematologic: Reports: None Immunologic: Reports: None Dermatologic: Reports: None Oncologic: Reports: None - Tobacco Use Smoking Status *Q: Current Every Day Smoker Years of Tobacco use: 20 Packs/Tins Daily: 2 Used Tobacco, but Quit: No Month Tobacco Last Used: September Second Hand Smoke Exposure: Yes - Caffeine Use Caffeine Use: Reports: Coffee, Energy Drinks, Soda, Tea Caffeine Use Comment: 1 monster everyday - Alcohol Use Days Per Week of Alcohol Use: 1 Number of Drinks Per Day: 1 Total Drinks Per Week: 1 - Recreational Drug Use Recreational Drug Use: No H&P Review of Systems - Review of Systems: Review Of Systems: See Below General: Reports: No Symptoms. Denies: Fever, Chills, Malaise, Weakness, Fatigue HEENT: Reports: No Symptoms. Denies: Headaches, Sinus Congestion, Sore Throat, Vertigo Pulmonary: Reports: No Symptoms. Denies: Shortness of Breath, Cough, Sputum Cardiovascular: Reports: No Symptoms. Denies: Chest Pain (no current chest pain , none since yesterday evening. ), Palpitations, Edema, Lightheadedness Gastrointestinal: Reports: No Symptoms. Denies: Abdominal Pain, Black Stool, Bloody Stool, Nausea, Vomiting Genitourinary: Reports: No Symptoms. Denies: Dysuria, Frequency, Burning, Pain Musculoskeletal: Reports: No Symptoms. Denies: Neck Pain Psychiatric: Reports: No Symptoms. Denies: Confusion Neurological: Reports: No Symptoms. Denies: Confusion Hematologic/Lymphatic: Reports: No Symptoms. Denies: Anemia Immunologic: Reports: No Symptoms. Denies: Anaphylaxis Exam - Exam Exam: See Below - Vital Signs Vital Signs: Last Vital Signs Temp 97.4 F 07/04/17 07:53 Pulse 67 07/04/17 07:53 Resp 16 07/04/17 07:53 BP 133/82 07/04/17 07:53 Pulse Ox 95 07/04/17 07:53 Weight: 127.323 kg - Exam Quality Assessment: DVT Prophylaxis. No: Supplemental Oxygen General: Alert, Oriented, Cooperative HEENT: Conjunctiva Clear, Mucosa Moist & [place], Posterior Pharynx Clear, Pupils Equal, Pupils Reactive Lungs: Clear to Auscultation, Normal Respiratory Effort Cardiovascular: Regular Rate, Regular Rhythm, Normal S1, Normal S2, Other (no chest wall tenderness to palpation. No current chest pain and none overnight. ) . No: Irregular Rhythm, Bradycardia GI/Abdominal Exam: Normal Bowel Sounds, Soft, Non-Tender, No Organomegaly, No Distention, No Abnormal Bruit, No Mass, Pelvis Stable Back Exam: Normal Inspection, Full Range of Motion, NT Extremities: Normal Inspection, Normal Range of Motion, Non-Tender, No Pedal Edema, Normal Capillary Refill Neuro Extensive - Mental Status: Alert, Oriented x3, Normal Mood/Affect, Normal Cognition Neuro Extensive - Motor, Sensory, Reflexes: CN II-XII Intact, Normal Gait Psychiatric: Alert, Normal Affect, Normal Mood - Patient Data Lab Results Last 24 hrs: Laboratory Results - last 24 hr 07/04/17 Range/Units 02:47 Troponin I < 0.050 (0.000-0.056) ng/mL Result Diagrams: 07/03/17 20:50 07/03/17 20:50 EKG INTERPRETATION EKG Date: 07/03/17 Rhythm: NSR Rate (Beats/Min): 80 P-Wave: Present QRS: Normal (LVH) ST-T: Normal QT: Normal *Q Meaningful Use (ADM) - VTE *Q VTE Criteria *Q: - Stroke *Q Stroke Criteria *Q: - AMI *Q AMI Criteria *Q: - Problem List (1) Chest pain SNOMED Code(s): 52886017 ICD Code: R07.9 - CHEST PAIN, UNSPECIFIED Status: Acute Current Visit: No Qualifiers: Chest pain type: unspecified Qualified Code(s): R07.9 - Chest pain, unspecified (2) CAD (coronary artery disease) SNOMED Code(s): 55343146 ICD Code: I25.10 - ATHSCL HEART DISEASE OF [place] CORONARY ARTERY W/O ANG PCTRS Status: Chronic Current Visit: Yes Qualifiers: Coronary Disease-Associated Artery/Lesion type: [place] artery [place] vs. transplanted heart: [place] heart Associated angina: without angina Qualified Code(s): I25.10 - Atherosclerotic heart disease of [place] coronary artery without angina pectoris (3) History of placement of stent in LAD coronary artery SNOMED Code(s): 221349281 ICD Code: Z95.5 - PRESENCE OF CORONARY ANGIOPLASTY IMPLANT AND GRAFT Status : Chronic Current Visit: Yes (4) Dyslipidemia SNOMED Code(s): 484905400 ICD Code: E78.5 - HYPERLIPIDEMIA, UNSPECIFIED Status: Chronic Current Visit: Yes (5) Tobacco abuse SNOMED Code(s): 612100227 ICD Code: Z72.0 - TOBACCO USE Status: Chronic Current Visit: Yes Problem List Initiated/Reviewed/Updated: Yes Orders Last 24hrs: Active Orders 24 hr Category Date Time Status Cardiac [Heart Healthy Diet] [DIET] Diet 07/04/17 Breakfast Active TROPONIN I [CHEM] Routine Lab 07/04/17 09:00 Ordered Acetaminophen [Tylenol] Med 07/03/17 23:37 Active 650 mg PO Q4H PRN Clopidogrel [Plavix] Med 07/04/17 09:00 Active 75 mg PO DAILY Metoprolol Succinate [Toprol XL] Med 07/03/17 23:45 Active 50 mg PO BID atorvaSTATin [Lipitor] Med 07/04/17 09:00 Active 20 mg PO DAILY Medication Orders Acetaminophen (Tylenol) 650 mg PO Q4H PRN PRN Reason: Pain (mild 1-3) Atorvastatin Calcium (Lipitor) 20 mg PO DAILY JAQUI Clopidogrel Bisulfate (Plavix) 75 mg PO DAILY JAQUI Metoprolol Succinate (Toprol Xl) 50 mg PO BID JAQUI Last Admin: 07/03/17 23:59 Dose: 50 mg Sodium Chloride (Saline Flush) 10 ml FLUSH ASDIRECTED PRN PRN Reason: Keep Vein Open Sodium Chloride (Saline Flush) 2.5 ml FLUSH ASDIRECTED PRN PRN Reason: Keep Vein Open Assessment/Plan Comment:: This 46 year old male admitted with chest pain rule out ACS 1. Chest pain: Troponins x2 negative so far. No recurrent chest pain overnight or this am. Telemetry continues to show no ischemia. Will give another Protonix dose. Will attempt to speak with Dr Kathleen regarding admission and outpatient follow up. Will arrange appointment for him to see Dr Kathleen in the next week or so for evaluation as well as [place] PCP, Dr Gr. May be GERD due to pain at night , educated not to eat late and may consider Protonix for a short trial at home. Also counseled on importance of smoking cessation with heart disease. He verbalized understanding and is going to try stop, "I did stop and felt so much better, but then I started up again, it is so hard to stop." Will not provide nicotine replacement at this time due to workup for chest pain. 2. CAD: COntinue ASA and Plavix 3. HTN: Stable, continue all home medications Discharge Plan: All troponins negative. No chest pain during stay. No EKG changes noted. May be GERD/heartburn related. Protonix to be prescribed x 1 month and encouraged to take this in the evening before supper to help with late evening heartburn. Encouraged to eat supper before 7 pm. Again HIGHLY stressed smoking cessation and stressed this to his as well since he would still be exposed to second hand smoke with her smoking around him. He will be set up with outpatient follow up with PCP and Cardiology. He is to return to ED or clinic if concerns should arise.
--- NOTE | 2017-07-04 08:19 | CR ---
EXAM DATE: 07/03/17 PATIENT'S AGE: 46 Patient: NELLY TANG Facility: [facility], [place] Site . Site : [id number] Study: XRay Chest [id number]/6/2018 9:13:21 PM Ordering Physician: Allison Ma Final Report: INDICATION: chest pain, sob TECHNIQUE: Chest 1 view. COMPARISON: 10/07/16 FINDINGS: Cardiovascular and mediastinum: Heart size and vasculature are normal in caliber and appearance. Mediastinum is within normal limits. Lungs and pleural space: Lungs are clear. No sign of infiltrate or mass. No sign of pleural effusion. No pneumothorax. Bones and soft tissues: No significant findings. IMPRESSION: Unremarkable chest. Dictated by: Coy Quiroz MD @ 07/03/2017 21:16:53 (Electronic Signature) Report Signed by Proxy. [facility]ENTERPedro
[2017-07-04] MEDS ORDERED: Pantoprazole 40 MG Vial IVPUSH ONE (08:28)
[2017-07-04] MEDS ORDERED: NUCYNTA PO SCH (08:36)
[2017-07-04] MEDS: Metoprolol Succinate 50 MG Tab.ER PO SCH (08:50)
[2017-07-04] MEDS ORDERED: atorvaSTATin 20 MG Tab PO SCH (09:00)
[2017-07-04] MEDS ORDERED: Clopidogrel 75 MG Tab PO SCH (09:00)
[2017-07-04] MEDS ORDERED: Aspirin 81 MG Tab.Chew PO SCH (09:00)
[2017-07-04] MEDS ORDERED: Isosorbide Mononitrate 30 MG Tab.ER PO SCH (09:00)
== END 2017-07-04 11:27 | disposition home or self-care (01) ==
LOC: MW.ED 20:28 → MW.MS 21:34
PROVIDERS: ADMIT Internal Medicine; ATTEND Internal Medicine
DX: R07.89 Other chest pain (principal); I25.10 Atherosclerotic heart disease of native coronary artery without angina pectoris; I10 Essential (primary) hypertension; E78.5 Hyperlipidemia, unspecified; F17.210 Nicotine dependence, cigarettes, uncomplicated; I25.2 Old myocardial infarction; E66.9 Obesity, unspecified; Z95.5 Presence of coronary angioplasty implant and graft; Z79.899 Other long term (current) drug therapy; Z82.49 Family history of ischemic heart disease and other diseases of the circulatory system; Z79.02 Long term (current) use of antithrombotics/antiplatelets; Z79.82 Long term (current) use of aspirin; Z68.30 Body mass index [BMI] 30.0-30.9, adult; Z90.49 Acquired absence of other specified parts of digestive tract
CPT/HCPCS: 36415; 71045; 80053; 84484; 85025; 85610; 96374; 96376; 99285; A9270; C9113; G0378; 99284

== ENCOUNTER 2018-08-12 12:41 | Emergency (ER) | payer BC ==
[2018-08-12] MEDS ORDERED: Aspirin 81 MG Tab.Chew PO ONE (12:43)
[2018-08-12] MEDS ORDERED: Aspirin 81 MG Tab.Chew ONE (12:43)
[2018-08-12] MEDS ORDERED: Sodium Chloride 0.9% 1,000 ML IV ONE (12:43)
[2018-08-12] MEDS ORDERED: Enoxaparin 150 MG/1 ML Syringe SUBCUT ONE (12:44)
[2018-08-12] MEDS ORDERED: Nitroglycerin/D5W 25 MG/250 ML BOTTLE IV SCH (12:45)
[2018-08-12] MEDS ORDERED: Morphine 2 MG/ML Syringe IVPUSH ONE (12:47)
--- NOTE | 2018-08-12 12:47 | EDM.PDOC ---
ED HPI GENERAL MEDICAL PROBLEM - General Chief Complaint: Chest Pain Stated Complaint: CHEST PAIN Time Seen by Provider: 08/12/18 12:45 Source of Information: Reports: Patient - History of Present Illness INITIAL COMMENTS - FREE TEXT/NARRATIVE: HISTORY AND PHYSICAL: History of present illness: [Patient presents by private vehicle History of 3 MIs previously with 4 stents last cardiac catheter was one year prior, he did take 3 nitroglycerin prior to arrival pain is still 6-8 out of 10 with continued radiation to the shoulder no radiation to neck or jaw no diaphoresis he does complain of some shortness of breath I did provide aspirin Lovenox and ultimately morphine and a nitro drip pain is improving he is currently at 15 g on the nitro drip will continue to titrate I did speak with Dr. Av Zazueta do who is accepted the patient and will see him through the [place] in [place] Fever nausea vomiting chills sweats 10 out of 10 pain began while driving down the road, radiates to left shoulder he did take 3 nitroglycerin Review of systems: As per history of present illness and below otherwise all systems reviewed and negative. Past medical history: As per history of present illness and as reviewed below otherwise noncontributory. Surgical history: As per history of present illness and as reviewed below otherwise noncontributory. Social history: No reported history of drug or alcohol abuse. Family history: As per history of present illness and as reviewed below otherwise noncontributory. Physical exam: HEENT: Atraumatic, normocephalic, pupils reactive, negative for conjunctival pallor or scleral icterus, mucous membranes moist, throat clear, neck supple, nontender, trachea midline. Lungs: Clear to auscultation, breath sounds equal bilaterally, chest nontender. Heart: S1S2, regular, negative for clicks, rubs, or JVD. Abdomen: Soft, nondistended, nontender. Negative for masses or hepatosplenomegaly. Negative for costovertebral tenderness. Pelvis: Stable nontender. Genitourinary: Deferred. Rectal: Deferred. Extremities: Atraumatic, negative for cords or calf pain. Neurovascular unremarkable. Neuro: Awake, alert, oriented. Cranial nerves II through XII unremarkable. Cerebellum unremarkable. Motor and sensory unremarkable throughout. Exam nonfocal. Diagnostics: [CBC CMP UA troponin lipase EKG Chest 1 view ] Therapeutics: [ patient took 3 doses of nitroglycerin sublingual prior to arrival Nitroglycerin drip Morphine 2 mg IV Aspirin 324 mg chewable ] Lovenox Impression: stable angina Acute coronary syndrome ] Definitive disposition and diagnosis as appropriate pending reevaluation and review of above. Chest Pain Score (Numeric/FACES): 6 - Related Data Allergies Allergy/AdvReac Type Severity Reaction Status Date / Time No Known Allergies Allergy Verified 08/12/18 12:43 Home Meds: Home Meds Clopidogrel [Plavix] 75 mg PO DAILY 05/28/16 [History] Metoprolol Succinate [Toprol XL 50mg] 50 mg PO BID 05/28/16 [History] atorvaSTATin [Lipitor] 20 mg PO BEDTIME 05/28/16 [History] Cyclobenzaprine [Flexeril] 1 tab PO TID PRN 07/17/16 [History] Nitroglycerin [Nitrostat] 1 tab SL ASDIRECTED 07/17/16 [History] Tapentadol HCl [Nucynta] 1 tab PO TID 07/17/16 [History] Aspirin 81 mg PO DAILY 10/07/16 [History] Isosorbide Mononitrate [Imdur] 30 mg PO BID 07/04/17 [History] Pantoprazole Sodium [Protonix] 40 mg PO DAILY #30 tablet. 07/04/17 [Rx] Past Medical History - Past Health History Medical/Surgical History: Denies Medical/Surgical History HEENT History: Reports: None Other HEENT History: wears glasses Cardiovascular History: Reports: CAD, High Cholesterol, Hypertension, [place], Stents (LAD and posterolateral branch in 05/29/16, drug eluting). Denies: Afib, Blood Clots/VTE/DVT Other Cardiovascular History: Heart attack last month; no stents Respiratory History: Reports: None. Denies: Asthma, COPD, PE Gastrointestinal History: Reports: None. Denies: GERD, GI Bleed Genitourinary History: Reports: None Musculoskeletal History: Reports: Back Pain, Chronic Other Musculoskeletal History: Back injury Neurological History: Reports: None. Denies: CVA, TIA Psychiatric History: Reports: None Endocrine/Metabolic History: Reports: Obesity/BMI 30+. Denies: Diabetes, Type II Hematologic History: Reports: None Immunologic History: Reports: None Oncologic (Cancer) History: Reports: None Dermatologic History: Reports: None - Infectious Disease History Infectious Disease History: Reports: Chicken Pox - Past Surgical History Head Surgeries/Procedures: Reports: None HEENT Surgical History: Reports: None Cardiovascular Surgical History: Reports: Coronary Artery Stent, Percutaneous Transluminal Angioplasty GI Surgical History: Reports: Appendectomy, Hernia, Abdominal Male Surgical History: Reports: None Neurological Surgical History: Reports: None Musculoskeletal Surgical History: Reports: None Social & Family History - Family History Family Medical History: Noncontributory Cardiac: Reports: Hypertension, Other (See Below) Other Cardiac Family History: father have cardiac problem Respiratory: Reports: None GI: Reports: None : Reports: None Musculoskeletal: Reports: None Neurological: Reports: None Psychiatric: Reports: None Endocrine/Metabolic: Reports: None, Diabetes, type II Hematologic: Reports: None Immunologic: Reports: None Dermatologic: Reports: None Oncologic: Reports: None - Caffeine Use Caffeine Use: Reports: Coffee, Energy Drinks, Soda, Tea Caffeine Use Comment: 1 monster everyday ED ROS GENERAL - Review of Systems Review Of Systems: See Below ED EXAM, GENERAL - Physical Exam Exam: See Below Course - Vital Signs Last Recorded V/S: Last Vital Signs Temp Pulse 75 08/12/18 12:41 Resp 18 08/12/18 12:41 BP 130/88 08/12/18 12:41 Pulse Ox 97 08/12/18 12:41 - Orders/Labs/Meds Orders: Active Orders 24 hr Category Date Time Status EKG Documentation Completion [RC] STAT Care 08/12/18 12:43 Active Nitroglycerin/D5W [Nitroglycerin 25 MG/D5W 250 ML] Med 08/12/18 12:45 Active 25 mg in 250 ml IV TITRATE Medication Orders Nitroglycerin/Dextrose (Nitroglycerin 25 Mg/D5w 250 Ml) 25 mg in 250 mls @ 3 mls/hr IV TITRATE JAQUI Last Admin: 08/12/18 13:29 Dose: 5 mcg/min, 3 mls/hr Labs: Laboratory Tests 08/12/18 08/12/18 08/12/18 Range/Units 12:40 12:40 12:40 WBC 10.20 (4.0-11.0) K/uL RBC 4.60 (4.50-5.90) M/uL Hgb 14.4 (13.0-17.0) g/dL Hct 42.7 (38.0-50.0) % MCV 92.8 (80.0-98.0) fL MCH 31.3 (27.0-32.0) pg MCHC 33.7 (31.0-37.0) g/dL RDW Std Deviation 45.3 (28.0-62.0) fl RDW Coeff of Anita 13 (11.0-15.0) % Plt Count 255 (150-400) K/uL MPV 9.50 (7.40-12.00) fL Neut % (Auto) 66.2 (48.0-80.0) % Lymph % (Auto) 26.2 (16.0-40.0) % [place] % (Auto) 6.0 (0.0-15.0) % Eos % (Auto) 1.4 (0.0-7.0) % Baso % (Auto) 0.2 (0.0-1.5) % Neut # (Auto) 6.8 H (1.4-5.7) K/uL Lymph # (Auto) 2.7 H (0.6-2.4) K/uL [place] # (Auto) 0.6 (0.0-0.8) K/uL Eos # (Auto) 0.1 (0.0-0.7) K/uL Baso # (Auto) 0.0 (0.0-0.1) K/uL Nucleated RBC % 0.0 /100WBC Nucleated RBCs # 0 K/uL INR 1.00 Sodium 137 (136-148) mmol/L Potassium 4.0 (3.5-5.1) mmol/L Chloride 100 (98-107) mmol/L Carbon Dioxide 26.5 (21.0-32.0) mmol/L BUN 7 (7.0-18.0) mg/dL Creatinine 1.1 (0.8-1.3) mg/dL Est Cr Clr Drug Dosing 93.08 mL/min Estimated GFR (MDRD) > 60.0 ml/min Glucose 131 H (74-106) mg/dL Calcium 9.2 (8.5-10.1) mg/dL Total Bilirubin 0.4 (0.2-1.0) mg/dL AST 28 (15-37) IU/L ALT 66 H (14-63) IU/L Alkaline Phosphatase 94 (46-116) U/L Troponin I < 0.050 (0.000-0.056) ng/mL Total Protein 8.0 (6.4-8.2) g/dL Albumin 4.2 (3.4-5.0) g/dL Globulin 3.8 (2.6-4.0) g/dL Albumin/Globulin Ratio 1.1 (0.9-1.6) Lipase 217 (73-393) U/L Meds: Medications Generic Name Dose Route Start Last Admin Trade Name Freq PRN Reason Stop Dose Admin Nitroglycerin/Dextrose 25 mg in 250 mls @ 3 mls/hr 08/12/18 12:45 08/12/18 13 :29 Nitroglycerin 25 Mg/D5w 250 Ml IV 5 mcg/min TITRATE JAQUI 3 mls/hr Administration 5 MCG/MIN Discontinued Medications Generic Name Dose Route Start Last Admin Trade Name Freq PRN Reason Stop Dose Admin Aspirin 324 mg 08/12/18 12:43 08/12/18 12:48 Aspirin PO 08/12/18 12:44 324 mg ONETIME ONE Administration Aspirin Confirm 08/12/18 12:43 08/12/18 13:47 Aspirin Administered 08/12/18 12:44 Not Given Dose 324 mg .ROUTE .STK-MED ONE Enoxaparin Sodium 130 mg 08/12/18 12:44 08/12/18 13:29 Lovenox SUBCUT 08/12/18 12:45 130 mg ONETIME ONE Administration Sodium Chloride 1,000 mls @ 999 mls/hr 08/12/18 12:43 08/12/18 12:47 Normal Saline IV 08/12/18 13:43 999 mls/hr STAT ONE Administration Morphine Sulfate 2 mg 08/12/18 12:47 08/12/18 12:52 Morphine IVPUSH 08/12/18 12:48 2 mg ONETIME ONE Administration Departure - Departure Time of Disposition: 14:03 Disposition: DC/Tfer to Acute Hospital 02 Condition: Poor Clinical Impression: Acute coronary syndrome - Discharge Information Referrals: PCP,Unknown [Primary Care Provider] - Forms: ED Department Discharge - My Orders Last 24 Hours: My Active Orders 08/12/18 12:43 EKG Documentation Completion [RC] STAT 08/12/18 12:45 Nitroglycerin/D5W [Nitroglycerin 25 MG/D5W 250 ML] 25 mg in 250 ml IV TITRATE - Assessment/Plan Last 24 Hours: My Active Orders 08/12/18 12:43 EKG Documentation Completion [RC] STAT 08/12/18 12:45 Nitroglycerin/D5W [Nitroglycerin 25 MG/D5W 250 ML] 25 mg in 250 ml IV TITRATE
[2018-08-12 13:40] LABS: CHLORIDE,CL 100 mmol/L (98-107); SODIUM,NA 137 mmol/L (136-148)
--- NOTE | 2018-08-12 13:44 | CR ---
EXAMINATION: Portable chest radiograph. HISTORY: Pain. FINDINGS: The trachea is midline. The cardiomediastinal silhouette is within normal limits. No pulmonary infiltrates, effusions or pneumothorax. Osseous structures appear unremarkable. IMPRESSION: No acute cardiopulmonary process.
[2018-08-12 17:04] VITALS: BP 124/85
== END 2018-08-12 14:30 ==
LOC: MW.ED 12:41
DX: I24.9 Acute ischemic heart disease, unspecified (principal); I25.10 Atherosclerotic heart disease of native coronary artery without angina pectoris; E78.00 Pure hypercholesterolemia, unspecified; I10 Essential (primary) hypertension; Z79.01 Long term (current) use of anticoagulants; Z79.899 Other long term (current) drug therapy; Z79.82 Long term (current) use of aspirin; Z95.5 Presence of coronary angioplasty implant and graft
CPT/HCPCS: 36415; 71045; 80053; 83690; 84484; 85025; 85610; 93005; 96361; 96365; 96375; 99285; A9270; J1650; J2270; J3490; J7040; 99284

== ENCOUNTER 2018-11-22 04:10 | Emergency (ER) | payer BC ==
[2018-11-22] MEDS ORDERED: Lidocaine 2% Viscous Solution 15 ML Cup PO ONE (04:23)
[2018-11-22] MEDS ORDERED: Benzocaine 20% Topical Spray UD MUCMEM ONE (04:23)
[2018-11-22] MEDS ORDERED: cefTRIAXone 1 GM Vial IM ONE (04:23)
--- NOTE | 2018-11-22 04:26 | EDM.PDOC ---
ED HPI GENERAL MEDICAL PROBLEM - General Chief Complaint: ENT Problem Stated Complaint: SWELLING ON RIGHT SIDE OF FACE, NAUSEA Time Seen by Provider: 11/22/18 04:24 Source of Information: Reports: Patient - History of Present Illness INITIAL COMMENTS - FREE TEXT/NARRATIVE: HISTORY AND PHYSICAL: History of present illness: [Patient presents with dental pain and facial swelling on the right, poor dentition noted on the right upper tooth erosion to the gumline, 8 out of 10 pain awoke him from sleep. He is under the care of a dentist however is not is been seen for this infection No fever chills sweats Review of systems: As per history of present illness and below otherwise all systems reviewed and negative. Past medical history: As per history of present illness and as reviewed below otherwise noncontributory. Surgical history: As per history of present illness and as reviewed below otherwise noncontributory. Social history: No reported history of drug or alcohol abuse. Family history: As per history of present illness and as reviewed below otherwise noncontributory. Physical exam: HEENT: Atraumatic, normocephalic, pupils reactive, negative for conjunctival pallor or scleral icterus, mucous membranes moist, throat clear, neck supple, nontender, trachea midline. Lungs: Clear to auscultation, breath sounds equal bilaterally, chest nontender. Heart: S1S2, regular, negative for clicks, rubs, or JVD. Abdomen: Soft, nondistended, nontender. Negative for masses or hepatosplenomegaly. Negative for costovertebral tenderness. Pelvis: Stable nontender. Genitourinary: Deferred. Rectal: Deferred. Extremities: Atraumatic, negative for cords or calf pain. Neurovascular unremarkable. Neuro: Awake, alert, oriented. Cranial nerves II through XII unremarkable. Cerebellum unremarkable. Motor and sensory unremarkable throughout. Exam nonfocal. Diagnostics: [Clinical ] Therapeutics: [1 g Rocephin IM Augmentin Dental balls [place] 7.5 by mouth now Toradol ] Follow-up with dentist in a.m. as planned Impression: [ dental abscess ] Definitive disposition and diagnosis as appropriate pending reevaluation and review of above. dental pain Pain Score (Numeric/FACES): 7 - Related Data Allergies Allergy/AdvReac Type Severity Reaction Status Date / Time No Known Allergies Allergy Verified 11/22/18 04:21 Home Meds: Home Meds Clopidogrel [Plavix] 75 mg PO DAILY 05/28/16 [History] Metoprolol Succinate [Toprol XL 50mg] 50 mg PO BID 05/28/16 [History] atorvaSTATin [Lipitor] 20 mg PO BEDTIME 05/28/16 [History] Cyclobenzaprine [Flexeril] 1 tab PO TID PRN 07/17/16 [History] Nitroglycerin [Nitrostat] 1 tab SL ASDIRECTED 07/17/16 [History] Tapentadol HCl [Nucynta] 1 tab PO TID 07/17/16 [History] Aspirin 81 mg PO DAILY 10/07/16 [History] Pantoprazole Sodium [Protonix] 40 mg PO DAILY #30 tablet. 07/04/17 [Rx] Nitroglycerin [Nitroglycerin Patch 0.2 MG/Hr] 5 mg TRDERM DAILY 11/22/18 [ History] Past Medical History - Past Health History Medical/Surgical History: Denies Medical/Surgical History HEENT History: Reports: None Other HEENT History: wears glasses Cardiovascular History: Reports: CAD, High Cholesterol, Hypertension, [place], Stents (LAD and posterolateral branch in 05/29/16, drug eluting). Denies: Afib, Blood Clots/VTE/DVT Other Cardiovascular History: Heart attack last month; no stents Respiratory History: Reports: None. Denies: Asthma, COPD, PE Gastrointestinal History: Reports: None. Denies: GERD, GI Bleed Genitourinary History: Reports: None Musculoskeletal History: Reports: Back Pain, Chronic Other Musculoskeletal History: Back injury Neurological History: Reports: None. Denies: CVA, TIA Psychiatric History: Reports: None Endocrine/Metabolic History: Reports: Obesity/BMI 30+. Denies: Diabetes, Type II Hematologic History: Reports: None Immunologic History: Reports: None Oncologic (Cancer) History: Reports: None Dermatologic History: Reports: None - Infectious Disease History Infectious Disease History: Reports: Chicken Pox - Past Surgical History Head Surgeries/Procedures: Reports: None HEENT Surgical History: Reports: None Cardiovascular Surgical History: Reports: Coronary Artery Stent, Percutaneous Transluminal Angioplasty GI Surgical History: Reports: Appendectomy, Hernia, Abdominal Male Surgical History: Reports: None Neurological Surgical History: Reports: None Musculoskeletal Surgical History: Reports: None Social & Family History - Family History Family Medical History: Noncontributory Cardiac: Reports: Hypertension, Other (See Below) Other Cardiac Family History: father have cardiac problem Respiratory: Reports: None GI: Reports: None : Reports: None Musculoskeletal: Reports: None Neurological: Reports: None Psychiatric: Reports: None Endocrine/Metabolic: Reports: None, Diabetes, type II Hematologic: Reports: None Immunologic: Reports: None Dermatologic: Reports: None Oncologic: Reports: None - Caffeine Use Caffeine Use: Reports: Coffee, Energy Drinks, Soda, Tea Caffeine Use Comment: 1 monster everyday ED ROS GENERAL - Review of Systems Review Of Systems: See Below ED EXAM, GENERAL - Physical Exam Exam: See Below Course - Vital Signs Last Recorded V/S: Last Vital Signs Temp 96.9 F 11/22/18 04:15 Pulse 73 11/22/18 04:15 Resp 18 11/22/18 04:15 BP 124/72 11/22/18 04:15 Pulse Ox 98 11/22/18 04:15 - Orders/Labs/Meds Meds: Medications Discontinued Medications Generic Name Dose Route Start Last Admin Trade Name Harini PRN Reason Stop Dose Admin Benzocaine 2 each 11/22/18 04:23 Hurricaine One 20% MUCMEM 11/22/18 04:24 ONETIME ONE Ceftriaxone Sodium 1 gm 11/22/18 04:23 Rocephin IM 11/22/18 04:24 ONETIME ONE Lidocaine HCl 15 ml 11/22/18 04:23 Xylocaine 2% Viscous PO 11/22/18 04:24 ONETIME ONE Departure - Departure Time of Disposition: 04:26 Disposition: Home, Self-Care 01 Condition: Good, Fair Clinical Impression: Dental abscess - Discharge Information Referrals: Beto Gr MD [Primary Care Provider] - Forms: ED Department Discharge Additional Instructions: The following information is given to patients seen in the emergency department who are being discharged to home. This information is to outline your options for follow-up care. We provide all patients seen in our emergency department with a follow-up referral. The need for follow-up, as well as the timing and circumstances, are variable depending upon the specifics of your emergency department visit. If you don't have a primary care physician on staff, we will provide you with a referral. We always advise you to contact your personal physician following an emergency department visit to inform them of the circumstance of the visit and for follow-up with them and/or the need for any referrals to a consulting specialist. The emergency department will also refer you to a specialist when appropriate. This referral assures that you have the opportunity for follow-up care with a specialist. All of these measure are taken in an effort to provide you with optimal care, which includes your follow-up. Under all circumstances we always encourage you to contact your private physician who remains a resource for coordinating your care. When calling for follow-up care, please make the office aware that this follow-up is from your recent emergency room visit. If for any reason you are refused follow-up, please contact the [facility] emergency department at and asked to speak to the emergency department charge nurse.
[2018-11-22] MEDS ORDERED: Acetaminophen/HYDROcodone 325-7.5 MG Tab PO STA (04:27)
[2018-11-22] MEDS ORDERED: Lidocaine 1% 2 ML ONE (04:29)
[2018-11-22 04:58] VITALS: BP 110/73
== END 2018-11-22 05:00 | disposition home or self-care (01) ==
LOC: MW.ED 04:10
DX: K04.7 Periapical abscess without sinus (principal); I25.10 Atherosclerotic heart disease of native coronary artery without angina pectoris; E78.00 Pure hypercholesterolemia, unspecified; I10 Essential (primary) hypertension; Z79.899 Other long term (current) drug therapy; Z79.01 Long term (current) use of anticoagulants; Z79.82 Long term (current) use of aspirin
CPT/HCPCS: 96372; 99282; A9270; J0696; J2001

== ENCOUNTER 2022-12-03 18:34 | Emergency (ER) | payer BC ==
[2022-12-03] MEDS ORDERED: Sodium Chloride 0.9% 10 ML Syringe FLUSH PRN (18:43)
[2022-12-03] MEDS ORDERED: Sodium Chloride 0.9% 2.5 ML Syringe FLUSH PRN (18:43)
[2022-12-03 18:58] LABS: BASOPHILS PERCENT AUTO 0.2 % (0.0-1.5); EOSINOPHILS ABSOLUTE AUTO 0.3 K/uL (0.0-0.7); EOSINOPHILS PERCENT AUTO 2.2 % (0.0-7.0); HEMATOCRIT 42.2 % (38.0-50.0); HEMOGLOBIN 14.7 g/dL (13.0-17.0); LYMPHOCYTES ABSOLUTE AUTO 3.1 K/uL (0.6-2.4); LYMPHOCYTES PERCENT AUTO 22.5 % (16.0-40.0); MEAN CORPUSCULAR HEMOGLOBIN 31.3 pg (27.0-32.0); MEAN CORPUSCULAR HGB CONC 34.8 g/dL (31.0-37.0); MONOCYTES ABSOLUTE AUTO 0.7 K/uL (0.0-0.8); MONOCYTES PERCENT AUTO 5.1 % (0.0-15.0); NEUTROPHILS ABSOLUTE AUTO 9.6 K/uL (1.4-5.7); NRBC ABSOLUTE 0 K/uL; PLATELET COUNT,PLT 236 K/uL (150-400); RED BLOOD CELL COUNT 4.69 M/uL (4.50-5.90); WHITE BLOOD CELL COUNT,WBC 13.64 K/uL (4.0-11.0)
[2022-12-03 19:22] LABS: A/G RATIO 1.1 (0.9-1.6); ALBUMIN 3.9 g/dL (3.4-5.0); BILIRUBIN TOTAL 0.2 mg/dL (0.2-1.0); CALCIUM 8.7 mg/dL (8.5-10.1); CARBON DIOXIDE,CO2 29.1 mmol/L (21.0-32.0); CREATININE 1.1 mg/dL (0.8-1.3); EST CRCL DRUG DOSING (CG) 88.18 mL/min; POTASSIUM,K 3.8 mmol/L (3.5-5.1); PROTEIN TOTAL,TP 7.4 g/dL (6.4-8.2)
[2022-12-03] MEDS ORDERED: Acetaminophen 500 MG Tab PO ONE (20:11)
[2022-12-03 22:20] VITALS: BP 120/71; PULSE 74
== END 2022-12-03 22:32 | disposition home or self-care (01) ==
LOC: MW.ED 18:34
DX: M25.512 Pain in left shoulder (principal); I10 Essential (primary) hypertension; E11.9 Type 2 diabetes mellitus without complications; I25.2 Old myocardial infarction; K21.9 Gastro-esophageal reflux disease without esophagitis; J45.909 Unspecified asthma, uncomplicated; F17.210 Nicotine dependence, cigarettes, uncomplicated; E66.9 Obesity, unspecified; Z68.39 Body mass index [BMI] 39.0-39.9, adult; Z79.899 Other long term (current) drug therapy
CPT/HCPCS: 36415; 71045; 80053; 84484; 85025; 99285; A9270; J3490; 93010; 99283